=== PATIENT | female | born 1955 | race Two or more races ===

== ENCOUNTER 2024-03-22 20:05 | Emergency (ER) | payer MEDICARE, MEDICAID, SELFPAY ==
[2024-03-22 20:06] VITALS: BMI 21.9
[2024-03-22 20:45] VITALS: BP 103/72; PULSE 78; RESP 16; TEMP 36.8; O2SAT 100
--- NOTE | 2024-03-22 21:06 | XR_ITS ---
Examination: CT cervical spine without contrast 2-D sagittal reconstructions 2-D coronal reconstructions 3-D reconstructions. Exam date and time:March 22, 2024 2124 hrs. Indications: Patient fell today with injury to the neck, neck pain CTDI:vol (mGy) 11.3 DLP: (mGycm) 285 Technique: Multiple 2 mm axial sections of the cervical spine have been obtained. The coronal and sagittal reconstructions have been obtained. 3-D reconstructions have been obtained. Low dose protocols were performed. One or more of the following dose reduction techniques were used; automated exposure control, adjustment of the mA and/or KV according to patient size, use of iterative reconstruction technique. Findings: Axial sections demonstrate intact base of the skull. C1 exhibit satisfactory relationship to the odontoid. No acute cervical vertebral body fracture seen. Alignment posterior spinous processes satisfactory. Impression: No acute cervical fracture.
--- NOTE | 2024-03-22 21:06 | XR_ITS ---
Examination: CT maxillofacial, without intravenous contrast. 2-D sagittal reconstructions. 3-D reconstructions. Date and time of exam:March 22, 2024 2126 hrs. Indications: Patient fell today with injury to the face, facial pain CTDI: vol (mGy):17.6 DLP: (mGycm):333 Technique: Multiple axial images of maxillofacial region, 3.0 mm slice thickness. 2-D sagittal and coronal reconstructions. 3-D reconstructions. Low dose protocols were performed. One or more of the following dose reduction techniques were used; automated exposure control, adjustment of the mA and/or KV according to patient size, use of iterative reconstruction technique. Findings: Soft tissue swelling right frontal scalp No frontal bone fracture Orbital rims intact No nasal bone fracture No depression zygomatic arches Pterygoid plates maxilla and the mandible intact Impression: No acute facial fracture.
--- NOTE | 2024-03-22 21:06 | XR_ITS ---
Examination: CT brain head without contrast. 2-D sagittal coronal reconstructions Date and time of exam:March 22, 2024 2122 hrs. Indications: Patient slipped and fell today with injury to the head, head pain CTDI: vol (mGy):43.8 DLP: (mGycm):885 Technique: Multiple CT axial sections of the brain have been obtained, 5 mm slice thickness. Contrast has not been administered. 2-D sagittal, coronal reconstructions have been obtained Low dose protocols were performed. One or more of the following dose reduction techniques were used; automated exposure control, adjustment of the mA and/or KV according to patient size, use of iterative reconstruction technique. Findings: No significant ventricular enlargement. Intra-axial or extra-axial hemorrhage density is not seen. No mass effect or midline shift Basal cisterns are not remarkable. Fourth ventricle is midline. Cranial vault intact. Impression: Negative for acute hemorrhage, mass effect or midline shift
--- NOTE | 2024-03-22 21:07 | EDRME_ITS ---
Rapid Medical Screening Exam RME Arrival date/time: 03/22/24 20:05 68-year-old female past medical history of diabetes and no blood thinner use presents emergency department complaining of headache after suffering ground- level fall with contusion to left side of forehead with no LOC. Chief Complaint: Head Injury Time Seen by Provider: 03/22/24 21:04 Vital signs: Vital Signs Temperature 98.3 F 03/22/24 20:45 Pulse Rate 78 03/22/24 20:45 Respiratory Rate 16 03/22/24 20:45 Blood Pressure 103/72 03/22/24 20:45 Pulse Oximetry (%) 100 03/22/24 20:45 Oxygen Delivery Method Room Air 03/22/24 20:45 Vital signs reviewed by provider: Yes
--- NOTE | 2024-03-22 22:23 | EDNOTE_ITS ---
<Statement entered by Camila Carrasco MD - 04/01/24 11:49> As co-signing physician, I was present and available for consult prn. I concur with the plan and care as documented by the midlevel provider. ED Head Injury RME/HPI General Chief complaint: Head Injury Stated complaint: FALL, HIT LEFT SIDE HEAD AND LEFT KNEE Time Seen by Provider: 03/22/24 21:04 Source: patient Arrival date/time: 03/22/24 20:05 68-year-old female past medical history of diabetes and no blood thinner use presents emergency department complaining of headache after suffering ground- level fall with contusion to left side of forehead with no LOC. Mode of arrival: ambulatory Limitations: no limitations RME / HPI RME / HPI Narrative: 03/22/24 20:05 68-year-old female past medical history of diabetes and no blood thinner use presents emergency department complaining of headache after suffering ground- level fall with contusion to left side of forehead with no LOC. Related Data Previous Rx's ?Medication ?Instructions ?Recorded cephalexin 500 mg capsule 500 mg PO QID #28 caps 04/10/23 Allergies Allergy/AdvReac Type Severity Reaction Status Date / Time No Known Allergies Allergy Verified 04/09/23 20:54 Review of Systems Review of Systems Systems Reviewed: All systems reviewed, normal except as documented Constitutional Constitutional: Reports system reviewed and no additional complaints, except as documented, Denies body ache(s), Denies chills, Denies fever(s) and Reports headache(s) Eyes Eyes: Reports system reviewed and no additional complaints, except as documented and Denies change in vision ENT Ears, Nose, Mouth, and Throat: Reports system reviewed and no additional complaints, except as documented, Denies disequilibrium, Denies dizziness, Reports headache(s), Denies sore throat and Denies vertigo Cardiovascular Cardiovascular: Reports system reviewed and no additional complaints, except as documented, Denies chest pain and Denies dyspnea Respiratory Respiratory: Reports system reviewed and no additional complaints, except as documented, Denies chest congestion, Denies cough and Denies dyspnea Gastrointestinal Gastrointestinal: Reports system reviewed and no additional complaints, except as documented, Denies abdominal pain, Denies nausea and Denies vomiting Musculoskeletal Musculoskeletal: Reports system reviewed and no additional complaints, except as documented, Denies abnormal gait and Denies arthralgias Integumentary/Breasts Skin/Breast: Reports system reviewed and no additional complaints, except as documented, Denies erythema, Denies rash, Reports skin swelling and Denies wounds Neurologic Neurologic: Reports system reviewed and no additional complaints, except as documented, Denies abnormal gait, Denies disequilibrium, Denies dizziness, Reports headache(s) and Denies vertigo Past Medical History Past Medical History CARDIAC: Negative Congestive Heart Failure RESPIRATORY: Negative Chronic Obstructive Pulmonary Disease (COPD) GENITOURINARY: Negative Renal Disease ENDOCRINE: Positive Diabetes Mellitus Type 2; Negative Diabetes Mellitus Type 1 Social History SMOKING STATUS: Never smoker SUBSTANCE USE: does not use ED Exam General Limitations: Present no limitations General appearance: Present alert and in no apparent distress Head Head exam: Present atraumatic Expanded Head Exam Head exam physical: Present contusion Head image: 2 1. contusion Eye Eye exam: Present normal appearance, PERRL and EOMI ENT ENT exam: Present normal exam, normal oropharynx and mucous membranes moist Neck Neck exam: Present normal inspection, full ROM and trachea midline Chest Chest inspection: Present normal inspection and symmetric chest wall rise Respiratory Respiratory exam: Present normal lung sounds bilaterally Cardiovascular Cardiovascular exam: Present regular rate, normal rhythm and normal heart sounds Abdominal Exam Abdominal exam: Present soft and normal bowel sounds Extremities Exam Extremities exam: Present normal inspection and full ROM Back Exam Back exam: Present normal inspection and full ROM Neurological Exam Neurological exam: Present alert, oriented X3 and CN II-XII intact Psychiatric Psychiatric exam: Present normal affect and normal mood Skin Skin exam: Present warm, dry, intact and normal color Course Quality Measures none Orders Category Date Time Status CT cervical spine wo con Stat Exams 03/22/24 21:[address] facial bones wo con Stat Exams 03/22/24 21:[address] head/brain wo con Stat Exams 03/22/24 21:06 Completed Ketorolac Inj [Toradol Inj] Med 03/22/24 22:25 Discontinued 30 mg IM X1 ONE Vital Signs Vital signs: Vital Signs Temperature 98.3 F 03/22/24 20:45 Pulse Rate 78 03/22/24 20:45 Respiratory Rate 16 03/22/24 20:45 Blood Pressure 103/72 03/22/24 20:45 Pulse Oximetry (%) 100 03/22/24 20:45 Oxygen Delivery Method Room Air 03/22/24 20:45 100% RA WNL. Head Injury MDM Narrative MDM Narrative:: 68-year-old female past medical history of diabetes and no blood thinner use presents emergency department complaining of headache after suffering ground- level fall with contusion to left side of forehead with no LOC. CT Head, Face, and neck unremarkable. Patient data External records reviewed:: [facility] previous records Clinical information provided by:: patient and family Social determinants that could affect healthcare access:: none Patient has the following chronic illnesses:: see chart How is presenting disease/condition affected by chronic disease/condition?: u neffected by Evaluation data The following diagnostics were reviewed and interpreted by me:: radiology exam(s) Lab and/or radiology exams considered but not ordered:: ordered Interpretation Summary: interpreted by me Medications / Prescriptions Medications or Prescriptions considered but not ordered:: ordered Medication administrations:: Medication Administration History Discontinued Medications Ketorolac Tromethamine (Ketorolac Inj 60 Mg/2 Ml Vial) 30 mg IM X1 ONE Stop: 03/22/24 22:26 Last Admin: 03/22/24 22:46 Dose: 30 mg Documented By: given Consultations Consultation(s) initiated? (list below): No Diagnosis Differential diagnosis head injury: concussion without loss of consciousness, epidural hematoma, closed head injury, subarachnoid hematoma, postconcussion syndrome, subdural hematoma and concussion with loss of consciousness Most likely diagnosis given after review of the tests above:: closed head injury Admission Indicated Admission indicated?: not indicated Admission Request Was there a request for admission?: No Disposition Plan Disposition Plan: Discharge Discharge Attestation Discharge Attestation: The patient and all family members were given an opportunity to ask questions and understood the discharge instructions. Discharge instructions specifically effects, indications for sooner follow up or return to the emergency department, and the expected course of current diagnosis. Patient condition: Stable Discharge Plan Plan Patient Disposition: HOME (Self Care) Disposition Comment: Stable Prescriptions/Referrals Prescriptions/Med Rec: No Action cephalexin 500 mg capsule 500 mg PO QID Qty: 28 0RF Problem List Clinical Impression: Closed head injury Patient/Caregiver Discharge Instructions Discharge Activity: activity as tolerated Education Materials: ED Head Injury (Adult) Additional Instructions: Take Tylenol or ibuprofen as needed for pain. Follow-up with primary care provider in 24 to 48 hours. Return to emergency department for any worsening symptoms or as needed. Print Language: Lao Stand Alone Forms: [facility] Award Info., Patient Portal Info Letter PA/GERONTOLOGY AIDE Supervising Physician PA/GERONTOLOGY AIDE Supervising Physician: Dr. Carrasco
[2024-03-22] MEDS: KETOROLAC INJ 60 MG/2 ML VIAL 30 MG IM (22:46)
== END 2024-03-22 22:52 | disposition home or self-care (01) ==
LOC: SERX 22:25
PROVIDERS: Emergency Provider Emergency Medicine
DX: S00.83XA Contusion of other part of head, initial encounter (principal); S09.93XA Unspecified injury of face, initial encounter; S19.9XXA Unspecified injury of neck, initial encounter; W01.0XXA Fall on same level from slipping, tripping and stumbling without subsequent striking against object, initial encounter
CPT/HCPCS: 70450; 70486; 72125; 96372; 99284; J1885

== ENCOUNTER → 2024-05-19 | Outpatient (CLI) | payer MEDICARE, SELFPAY ==
--- NOTE | 2024-05-19 12:36 | XR_ITS ---
Examination: Hand, left 3 views Technique: Hand AP, oblique, lateral 3 views Date and time of exam: May 19, 2024 1411 hours INDICATIONS: Patient fell one month ago with injury to the hand, hand pain. FINDINGS: Prominent osteopenia No acute fracture No dislocation IMPRESSION: No acute fracture
--- NOTE | 2024-05-19 12:36 | XR_ITS ---
Examination: Wrist, left 2 views Technique: Wrist AP, lateral 2 views Date and time of exam: May 19, 2024 1411 hours INDICATIONS: Patient fell last month with injury to the wrist, wrist pain. FINDINGS: No acute fracture No dislocation No foreign body IMPRESSION: No acute fracture
== END | disposition home or self-care (01) ==
PROVIDERS: PCP Internal Medicine; Referring Provider Internal Medicine; Visit Provider Internal Medicine
DX: S69.92XA Unspecified injury of left wrist, hand and finger(s), initial encounter (principal); W19.XXXA Unspecified fall, initial encounter
CPT/HCPCS: 73100; 73130

== ENCOUNTER → 2024-07-22 | Outpatient (CLI) | payer MEDICARE, SELFPAY ==
--- NOTE | 2024-07-22 10:15 | XR_ITS ---
Examination: MRI left hand, without contrast Date and time of exam: July 22, 2024 1121 hours INDICATIONS: Pain at the palmar surface of the hand at the level of the first and second metacarpals post fall 5 months ago Technique: Multiple axial sagittal and coronal images of the left hand have been obtained with the Siemens high-resolution 1.5 Domonique MRI scanner. Images obtained include T2-weighted fat-suppressed sagittal sections, TR 3500, TE 46, T2 weighted coronal fat suppressed images, TR 3050, TE 84, T2-weighted transverse fat suppressed images, TR 3260, TE 63, proton density transverse images, TR 4720 TE 46, and T1 weighted coronal images, TR 560, TE 13. Findings: Marrow edema involving the triquetrum Moderate osteoarthritis first carpometacarpal joint No occult fracture involving metacarpals or phalanges No annular collin tear flexor extensor tendons intact Intact wrist flexor tendons with normal median nerve No soft tissue hematoma Cystic change in the triquetrum IMPRESSION: Marrow edema involving the triquetrum, recommend CT scan wrist without contrast follow-up to exclude occult fracture Moderate osteoarthritis first carpometacarpal joint Flexor extensor tendons appear intact with no annular collin tear
== END | disposition home or self-care (01) ==
PROVIDERS: PCP Internal Medicine; Referring Provider Internal Medicine; Visit Provider Internal Medicine
DX: M25.442 Effusion, left hand (principal); M18.12 Unilateral primary osteoarthritis of first carpometacarpal joint, left hand
CPT/HCPCS: 73218

== ENCOUNTER → 2024-09-07 | Outpatient (CLI) | payer MEDICARE, SELFPAY ==
--- NOTE | 2024-09-07 09:15 | XR_ITS ---
Examination: Screening digital mammography, bilateral Computer aided detection 3-D breast Tomosynthesis, bilateral Date and time of exam: September 07, 2024 0852 hours Compared to mammograms dating to May 16, 2016 Indication: Screening Technique: Nonmagnified MLO, CC views of the breasts to been obtained, reconstructed from 3-D Tomosynthesis images. R2 computer aided detection program utilized for evaluation of suspicious masses and/or abnormal calcifications. 3-D Tomosynthesis images obtained. Findings: Scattered areas of fibroglandular density. Benign calcifications. 3 mm circumscribed nodule upper right breast posterior depth, 8 cm from the nipple IMPRESSION: BI-RADS Category 0: Incomplete: Need additional imaging evaluation 3 mm circumscribed nodule upper outer right breast posterior depth, recommend follow-up spot tomographic views upper outer quadrant right breast posterior depth, right breast sonography to complete the workup
== END | disposition home or self-care (01) ==
LOC: CDIM 08:41
DX: Z12.31 Encounter for screening mammogram for malignant neoplasm of breast (principal); N63.11 Unspecified lump in the right breast, upper outer quadrant
CPT/HCPCS: 77063; 77067

== ENCOUNTER → 2024-09-28 | Outpatient (CLI) | payer MEDICARE, MEDICAID, SELFPAY ==
--- NOTE | 2024-09-28 16:00 | XR_ITS ---
Suggestion Examination: CT left wrist, without contrast. 2-D sagittal reconstructions. 2-D coronal reconstructions. 3-D reconstructions. Date and time of exam:September 28, 2024 at 1626 hours The patient fell 6 months ago with injury to the wrist, persistent wrist pain CTDI: vol (mGy):3.77 DLP: (mGycm):71.6 Technique: Multiple 1.25 mm axial sections of the left wrist without intravenous contrast have been obtained. 2-D sagittal and coronal reconstructions have been obtained. 3-D reconstructions have been obtained. Low dose protocols were performed. One or more of the following dose reduction techniques were used; automated exposure control, adjustment of the mA and/or KV according to patient size, use of iterative reconstruction technique. Findings: Moderate osteopenia. Mild narrowing radiocarpal joint Distal radius distal ulna is intact Navicular, lunate, triquetrum intact Tiny old fracture, 3 mm involving the trapezium, coronal image 23 [id number] osteoarthritis first carpometacarpal joint No avascular necrosis No opaque foreign body No dislocation IMPRESSION: Tiny old chip fracture off the trapezium Mild to moderate osteoarthritis first carpometacarpal joint
== END | disposition home or self-care (01) ==
PROVIDERS: Referring Provider Internal Medicine; Visit Provider Internal Medicine
DX: M18.12 Unilateral primary osteoarthritis of first carpometacarpal joint, left hand (principal)
CPT/HCPCS: 73200

== ENCOUNTER → 2024-11-18 | Outpatient (CLI) | payer MEDICARE, MEDICAID, SELFPAY ==
--- NOTE | 2024-11-18 14:32 | XR_ITS ---
Examination: Hand, left 3 views Technique: Hand AP, oblique, lateral 3 views Date and time of exam: November 18, 2024 1436 hours INDICATIONS: Patient fell March 2024 with persistent hand pain. FINDINGS: Moderate osteopenia. No fracture No erosive arthritis Mild osteoarthritis distal interphalangeal joints second through fifth digits and interphalangeal joint first digit as well as first carpometacarpal joint No foreign body IMPRESSION: No acute fracture Osteoarthritis as above
--- NOTE | 2024-11-18 14:32 | XR_ITS ---
Examination: Wrist, left 3 views Technique: Wrist AP, oblique, lateral 3 views Date and time of exam: January 23, 2025 1436 hours INDICATIONS: Patient fell March 2024 with intravenous, wrist pain. FINDINGS: Significant osteopenia No fracture or dislocation Mild to moderate osteoarthritis first carpometacarpal joint IMPRESSION: No fracture
== END | disposition home or self-care (01) ==
LOC: CDIM 14:16
PROVIDERS: Referring Provider Nurse Practitioner Gerontology; Visit Provider Nurse Practitioner Gerontology
DX: M19.042 Primary osteoarthritis, left hand (principal); M18.12 Unilateral primary osteoarthritis of first carpometacarpal joint, left hand; S69.92XS Unspecified injury of left wrist, hand and finger(s), sequela; W19.XXXS Unspecified fall, sequela
CPT/HCPCS: 73110; 73130

== ENCOUNTER → 2024-11-30 | Outpatient (CLI) | payer MEDICARE, SELFPAY ==
--- NOTE | 2024-11-30 08:00 | XR_ITS ---
Examination: Breast ultrasound, unilateral, right complete Date and time of exam: November 30, 2024, 0811 hours INDICATIONS: Mammogram September 07, 2024 3 mm circumscribed nodule upper outer right breast posterior depth Technique: Real-time garrido scale ultrasonographic imaging performed right breast including all 4 quadrants as well as nipple retroareolar and axillary region. Findings: No cystic or solid mass IMPRESSION: BI-RADS Category 1: Negative study
--- NOTE | 2024-11-30 08:30 | XR_ITS ---
Examination: Diagnostic digital mammography, unilateral, right Computer aided detection 3-D breast Tomosynthesis, unilateral Date and time of exam: 11/30/2024, 8:22 AM Comparisons: December 2018 through September 2024 Indications: Further evaluation of abnormality seen on recent screening exam. Technique: Nonmagnified MLO, CC views of the right breast have been obtained, reconstructed from 3-D Tomosynthesis images. R2 computer aided detection program utilized for evaluation of suspicious masses and/or abnormal calcifications. 3-D Tomosynthesis images obtained. Technologist: Findings: There are scattered areas of fibroglandular density. Benign-appearing 4 mm intramammary lymph node upper outer quadrant. Otherwise, no evidence of abnormal masses or suspicious calcifications. Impression: BI-RADS category 2: Benign findings Recommend 1 year follow-up mammogram
== END | disposition home or self-care (01) ==
DX: R92.321 Mammographic fibroglandular density, right breast (principal)
CPT/HCPCS: 76641; 77061; 77065; G0279